=== PATIENT | female | born 1990 | race Caucasian/White ===

== ENCOUNTER 2016-10-04 23:34 | Emergency (ER) | payer MEDICAID ==
--- NOTE | 2016-10-05 00:44 | PD ---
HPI Travel History International Travel<30 Days: No Contact w/Intl Traveler<30Days: No Known Affected Area: No History of Present Illness HPI Patient is a 26-year-old 2 para 1001 EDC is February 17, 2017 presently at 20 weeks and 4 days she presents chief complaint of hitting her abdomen in the lower suprapubic area while she was in the pool no ruptured membranes no vaginal bleeding she is feeling movement care is out of town in [place] she states when she had her ultrasound they told her the placenta was low no other problems she does not know her blood type no other injuries no head injuries no other symptoms at mild lower abdominal pain which resolved and came back this evening and that's why she came into done occurred at 4 PM History Past Medical History Narrative Medical No known drug allergies no major medical problems Obstetric History Obstetric History First baby born August 09, 2014 male weight 9 lbs. 4 oz. born by C- section Past Surgical History Narrative Surgical Family History Family History: Negative Social History Alcohol Use: No Tobacco Use: No Substance Abuse: No Allergies-Medications Comments No known drug allergies Review of Systems Gastrointestinal: Abdominal Pain Physical Exam Narrative GENERAL: Well-nourished, well-developed patient. Alert oriented 3 and cooperative in no acute distress CARDIOVASCULAR: Regular rate and rhythm without murmurs, gallops, or rubs. RESPIRATORY: Breath sounds equal bilaterally. No accessory muscle use. ABDOMEN/GI: Gravid consistent with 20 weeks soft nontender mild discomfort over the right round ligament no rebound tenderness Gravid to [-] weeks size 20 Fundal Height: [-] GENITOURINARY: Bedside ultrasound is done no funneling at the internal os and the cervical length was 4.08 External Genitalia: intact and normal in appearance BUS glands: [-] Cervix: [-] Dilatation: [-] Effacement: [-] Station: [-] Presentation: [-] Vertex on ultrasound Membranes: [intact Uterine Contractions: [-]0 FHT's: Category: [-] Baseline: [-] 133 Reactive: [-] Variability: [-] Decels: [-] EXTREMITIES: No cyanosis or edema. NEUROLOGICAL: Awake and alert. Motor and sensory grossly within normal limits. Five out of 5 muscle strength in all muscle groups. Normal speech. Data Data Vital Signs Reviewed: Yes (blood pressure 100/56 pulse 72 respiration 18 temperature is 98.3) Orders Vital Signs (Adult) .ON ADMISSION (10/05/16 00:37) ^ Labor Status (10/05/16 00:37) ^ Hydration (10/05/16 00:37) Type And Screen (10/05/16 00:37) Labs Bedside ultrasound is done vertex presentation with a BPD measuring 4.30 that equals 19 weeks Posterior placenta grade 1 low-lying no funneling at the internal os cervical length is 4.08 heart tones 133 no clinical evidence of abruption Baby is very active MDM Medical Record Reviewed: No Interpretation(s) 26-year-old at 20 weeks and 4 days No clinical evidence of labor threatened Low-lying placenta at this gestational age Clinical evidence of abruption Unknown blood type Plan Group and Rh if Rh+ we'll discharge home Rest limited activity Pelvic rest Keep next appointment with her physician Signs of labor reviewed with the patient Diagnosis Diagnosis: Primary Impression: Abdominal trauma Qualified Code: S39.91XA - Abdominal trauma, initial encounter Additional Impression: 20 weeks gestation of Disposition: DISCHARGE HOME Condition: Stable Nadya Camacho MD Oct 05, 2016 00:44
--- NOTE | 2016-10-05 11:19 | HHI.PR ---
Addendum to Inpatient Note Addendum Reason: Additional Documentation Additional Information Patient was evaluated in the OB ED on 10/04/16 after abdominal trauma. The patient was called back at her phone #[phone] to update her on her blood type, which is A positive. Patient answered the phone and received this information and had no further questions at this time. Martha Da Silva MD R1 Oct 05, 2016 11:19
== END 2016-10-05 01:07 | disposition home or self-care (01) ==
LOC: HOBED 23:34
DX: O26.92 Pregnancy related conditions, unspecified, second trimester (principal); R10.30 Lower abdominal pain, unspecified; Z3A.20 20 weeks gestation of pregnancy; W22.8XXA Striking against or struck by other objects, initial encounter; Y93.89 Activity, other specified; Y92.89 Other specified places as the place of occurrence of the external cause
CPT/HCPCS: 36415; 76815; 86850; 86900; 86901